=== PATIENT | male | born 1960 | race Caucasian/White ===

== ENCOUNTER 2023-06-14 09:53 | Outpatient (RCR) | payer OTHER, SELFPAY ==
--- NOTE | 2023-06-14 11:08 | OPREHPOC ---
Outpatient Therapy Plan of Care This is a Multidisciplinary Plan of Care that may contain components documented by all disciplines (PT, OT, and ST.) PT Problem 1 PT Problem #1 Knowledge Deficit PT Goal 1 Goal patient to demonstrate independence with HEP Target Visit 6 PT Problem 2 PT Problem #2 Pain PT Goal 1 Goal 1. patient to report highest pain at 2/10 2. patient to report ability to sleep with no disturbance due to L knee pain Target Visit 12 PT Problem 3 PT Problem #3 Impaired Range of Motion PT Goal 1 Goal patient to demonstrate 0-130 deg of L knee AROM to return to stair navigation at PLOF Target Visit 12 PT Problem 4 PT Problem #4 Impaired Strength PT Goal 1 Goal patient to demonstrate 5/5 strength of the L knee to return to getting up out of a chair at PLOF Target Visit 12 PT Problem 5 PT Problem #5 Impaired Functional Mobil PT Goal 1 Goal 1. patient to score less than 20% disability on LEFS 2. patient to complete 6 min walk test without use of AD for 1000' 3. patient to demonstrate step over step navigation of 1 flight of stairs Target Visit 12
--- NOTE | 2023-06-14 11:08 | PTOPEVAL1 ---
Assessment and note entered by Phyllis Wallis DPT Evaluation Information Assessment Status Evaluation Diagnosis L knee pain Onset 05/25/23 Subjective Information Patient reports he underwent L TKA on 05/25/23 and had 2 sessions of home health PT. he is now walking with a FWW but prior did not ambulate with an AD. he reports he has been compliant with HEP and has a cpm and has turned the flexion angle to 120 deg. he reports has difficulty with getting up from a chair, walking, and sleeping. Reported Pain Level Pain Score 5: Self Report Assessment PT Clinical Summary Patient is a 63 year old male who presents to PT with L knee pain s/p L TKA. Patient demonstrates impaired gait, decreased L knee ROM and decreased L knee strength limiting his ability to sleep, ambulate without AD, navigate stairs and complete house hold tasks. He would benefit from skilled PT to address impairments and return to PLOF. Plan of Care Interventions Electrical Stimulation,Gait Training,Hot Pack/Cold Pack,Intermittent Compression,Manual Therapy, Neuro Re-education,Patient/Caregiver Educati, Therapeutic Activities,Therapeutic Exercise PT Services Indicated Yes Treatment Frequency and 3 x weekly for 6 visits and 2x weekly for 6 visits Duration for a total for 12 visits These treatments will address the objective and functional deficits as defined above. The patient will be advanced safely and appropriately in order for the patient to progress towards his/her prior level of function. Additional exercises will be introduced and as well as a comprehensive home exercise program upon discharge, if needed, ?to ensure carryover of functional gains achieved in the clinic. This treatment plan has been reviewed and agreement upon by the patient.
--- NOTE | 2023-07-09 08:39 | PTOPPROG ---
Assessment and note entered by Rupert Mckeon Evaluation Information Assessment Status Evaluation Diagnosis left knee pain Onset 05/25/23 Subjective Information Pt. reports that he is progressing well. He continues to notice a slight limp with walking Assessment PT Clinical Summary Mr. Morales has attended a total of 10 treatment sessions. He has demonstrated excellent progress in regards to strength and mobility. Continue to note deficits in gait mechanics and educated pt. in techniques for HEP to improve gait. At this time recommend continued skilled PT to address remaining strength and mobility deficits per initial POC. Plan of Care Interventions Electrical Stimulation,Gait Training,Hot Pack/Cold Pack,Intermittent Compression,Manual Therapy, Neuro Re-education,Patient/Caregiver Educati, Therapeutic Activities,Therapeutic Exercise PT Services Indicated Yes Treatment Frequency and Continue for additional 2 visits to improve strength and ROM. Duration These treatments will address the objective and functional deficits as defined above. The patient will be advanced safely and appropriately in order for the patient to progress towards his/her prior level of function. Additional exercises will be introduced and as well as a comprehensive home exercise program upon discharge, if needed, ?to ensure carryover of functional gains achieved in the clinic. This treatment plan has been reviewed and agreement upon by the patient.
--- NOTE | 2023-07-14 08:14 | OPREHPOC ---
Outpatient Therapy Plan of Care This is a Multidisciplinary Plan of Care that may contain components documented by all disciplines (PT, OT, and ST.) PT Problem 1 PT Problem #1 Knowledge Deficit PT Goal 1 Goal patient to demonstrate independence with HEP Target Visit 6 Progress Met PT Problem 2 PT Problem #2 Pain PT Goal 1 Goal 1. patient to report highest pain at 2/10 2. patient to report ability to sleep with no disturbance due to L knee pain Target Visit 20 Progress Not Met Comment continue PT Problem 3 PT Problem #3 Impaired Range of Motion PT Goal 1 Goal patient to demonstrate 0-130 deg of L knee AROM to return to stair navigation at PLOF Target Visit 20 Progress Partially Met Comment continue PT Problem 4 PT Problem #4 Impaired Strength PT Goal 1 Goal patient to demonstrate 5/5 strength of the L knee to return to getting up out of a chair at PLOF Target Visit 20 Progress Partially Met Comment continue PT Problem 5 PT Problem #5 Impaired Functional Mobil PT Goal 1 Goal 1. patient to score less than 20% disability on LEFS -not met, continue 2. patient to complete 6 min walk test without use of AD for 1000' -met 3. patient to demonstrate step over step navigation of 1 flight of stairs -partially met, continue Target Visit 20 Progress Partially Met Comment continue
--- NOTE | 2023-07-14 08:14 | PTOPPROG ---
Assessment and note entered by Kenyetta Murillo, PT Evaluation Information Assessment Status Progress Diagnosis L knee pain, s/p L TKA Onset 05/25/23 Subjective Information Taqueria Morales reports his left knee is getting better overall. He is able to walk without a walker or cane. He does note increased pain when he sits for long periods or drives long distances. He notes he can go up stairs step over step but he has to take steps one at a time when he goes down. He has not been able to return to riding his horses. He notes stiffness today after being very active yesterday. He also notes he had higher pain yesterday after being in the car for several hours, mowing his lawn, and working with some of his horses. Assessment PT Clinical Summary Taqueria Morales has completed 12 skilled PT visits following a left TKA performed on 05/25/23. He is reporting increased pain after activity and notes stiffness in the knee in the mornings. He also still has difficulty going down steps, riding/ driving in a car for a long period, and riding his horses. He objectively demonstrates improved left knee AROM, improved left knee and hip strength, and improved gait. He is still limited with left knee flexion AROM demonstrating 110 degrees prior to stretching and 120 degrees after stretching. He also continues to have functional strength deficits and decreased stair negotiation ability. He will continue to Plan of Care Interventions Intermittent Compression,Patient/Caregiver Educati ,Therapeutic Activities,Therapeutic Exercise PT Services Indicated Yes Treatment Frequency and 2 times a week for 8 visits Duration These treatments will address the objective and functional deficits as defined above. The patient will be advanced safely and appropriately in order for the patient to progress towards his/her prior level of function. Additional exercises will be introduced and as well as a comprehensive home exercise program upon discharge, if needed, ?to ensure carryover of functional gains achieved in the clinic. This treatment plan has been reviewed and agreement upon by the patient.
--- NOTE | 2023-07-30 15:19 | PCPTNOTE ---
I reviewed the License Pending Therapist's documentation and agree with the findings.
--- NOTE | 2023-08-12 08:10 | OPREHPOC ---
Outpatient Therapy Plan of Care This is a Multidisciplinary Plan of Care that may contain components documented by all disciplines (PT, OT, and ST.) PT Problem 1 PT Problem #1 Knowledge Deficit PT Goal 1 Goal patient to demonstrate independence with HEP Target Visit 6 Progress Met PT Problem 2 PT Problem #2 Pain PT Goal 1 Goal 1. patient to report highest pain at 2/10 2. patient to report ability to sleep with no disturbance due to L knee pain Target Visit 20 Progress Met Comment . PT Problem 3 PT Problem #3 Impaired Range of Motion PT Goal 1 Goal patient to demonstrate 0-130 deg of L knee AROM to return to stair navigation at PLOF Target Visit 20 Progress Partially Met Comment . PT Problem 4 PT Problem #4 Impaired Strength PT Goal 1 Goal patient to demonstrate 5/5 strength of the L knee to return to getting up out of a chair at PLOF Target Visit 20 Progress Met Comment . PT Problem 5 PT Problem #5 Impaired Functional Mobil PT Goal 1 Goal 1. patient to score less than 20% disability on LEFS -not met 2. patient to complete 6 min walk test without use of AD for 1000' -met 3. patient to demonstrate step over step navigation of 1 flight of stairs -met Target Visit 20 Progress Partially Met Comment .
--- NOTE | 2023-08-12 08:11 | PTOPDC ---
Assessment and note entered by JT File, PT Evaluation Information Assessment Status Discharge Diagnosis L knee pain, s/p L TKA Onset 05/25/23 Subjective Information patient reports he feels good today. he reports he has not tried getting on his horse yet to ride. he reports he knows today is his last day in therapy. he reports last night he was setting up some bleachers for an event this weekend. he reports he is a little sore from this. Reported Pain Level Pain Score 2: Self Report Assessment PT Clinical Summary mr. guallpa presents to skilled PT today for his 20th skilled PT visit s/p TKA. he has achieved all goals for skilled PT, except for knee flexion arom and LEFS score. he is compliant with his HEP, and ready to DC PT today. he will continue with HEP independent at home. Plan of Care PT Services Indicated Yes
== END 2023-08-12 09:18 | disposition home or self-care (01) ==
LOC: CHSPT 09:53
PROVIDERS: Visit Provider Orthopaedic Surgery
DX: Z47.1 Aftercare following joint replacement surgery (principal); Z96.652 Presence of left artificial knee joint
CPT/HCPCS: 97016; 97110; 97112; 97140; 97150; 97161; 97530; 97750